=== PATIENT | female | born 1950 | race Caucasian/White ===

== ENCOUNTER 2018-01-30 13:42 | Emergency (ER) | payer OTHER, BC ==
[2018-01-30 14:37] VITALS: BP 181/151
--- NOTE | 2018-01-30 14:37 | EDPHY ---
H & P Stated Complaint: htn/dc [place]off hydrocodone for 10 days) Time Seen by Provider: 01/30/18 14:36 - Personal History Current Tetanus/Diphtheria Vaccine: Yes - Medical/Surgical History Hx Asthma: No Hx Chronic Respiratory Disease: No Hx Diabetes: No Hx Cardiac Disease: No Hx Renal Disease: No Hx Cirrhosis: No Hx Alcoholism: No Hx HIV/AIDS: No Hx Splenectomy or Spleen Trauma: No Other PMH: htn/chronic pain/fibromyalgia/back pain - Social History Smoking Status: Never smoked Constitutional: Initial Vital Signs Temperature (C) 36.8 C 01/30/18 13:54 Heart Rate 92 01/30/18 13:54 Respiratory Rate 18 01/30/18 13:54 Blood Pressure 171/114 H 01/30/18 13:54 O2 Sat (%) 96 01/30/18 13:54 O2 Delivery Mode Room Air Allergies/Adverse Reactions: No Known Allergies Allergy (Unverified 01/30/18 13:49) Home Medications: Medication Instructions Recorded RIANNA-D 12 HOUR TABLET 01/30/18 ARIPiprazole 01/30/18 Cyclobenzaprine 01/30/18 Diclofenac Potassium 01/30/18 Gabapentin 01/30/18 HYDROcodone/APAP 10/325 [S[place] 1 - 2 each PO Q4-6PRN PRN #30 tab 01/30/18 10/325] Omeprazole 01/30/18 VENLAFAXINE HCL 01/30/18 Valsartan 01/30/18 Vicodin 5-300 mg Tablet 01/30/18 Vitamin D3 01/30/18 buPROPion 01/30/18 Medical Decision Making ED Course/Re-evaluation: CHIEF COMPLAINT: Hypertension, headache HISTORY OF PRESENT ILLNESS: This patient is a pleasant 67 year old female complaining of headache and elevated blood pressure. She recently moved to [place] from [place] one month ago. She had an appointment with Dr. Sandra Kwok this morning and had elevated blood pressure and headache. The headache began this morning after waking. She was referred to emergency department for further evaluation. The patient's BP at triage 181/115. She generally takes Valsartan-HCTZ 320-12.5mg which has controlled her hypertension well. She has been taking all her medications as directed except for her pain medication, which she ran out of 10 days ago due to her move. She generally takes gabapentin, hydrocodone, and cyclobenzaprine, but she has not yet filled her prescription for hydrocodone as she has not followed up with a pain clinic here in [place] to transfer her medications. She is working with her PCP to establish care with a local pain clinic. She denies chest pain, shortness of breath, weakness, numbness, paresthesias, vomiting, fever, or other associated symptoms. REVIEW OF SYSTEMS: A 10 point review of systems was performed and is negative with the exception of the elements mentioned in the history of present illness. PHYSICAL EXAM: HR, BP, O2 Sat, RR. Temp noted General Appearance: Alert, well hydrated, appropriate, and non-toxic appearing. Head: Atraumatic without scalp tenderness or obvious injury Eyes: Pupils equal, round, reactive to light and accommodation, EOMI, no trauma , no injection. Ears: Clear bilaterally, no perforation, normal landmarks Nose: Atraumatic, no rhinorrhea, clear. Throat: There is no erythema or exudates, no lesions, normal tonsils, mucus membranes moist. Neck: Supple, 2+ carotid upstroke, nontender, no lymphadenopathy. Respiratory: No retractions, no distress, no wheezes, and no accessory muscle use. Lungs are clear to auscultation bilaterally. Cardiovascular: Regular rate and rhythm, no murmurs, rubs, or gallops. Bilateral carotid, radial, dorsalis pedis, and posterior tibial pulses intact. Good capillary refill all extremities. Gastrointestinal: Abdomen is soft, nontender, non-distended, no masses, no rebound, no guarding, no peritoneal signs. Musculoskeletal: Normal active ROM of all extremities, atraumatic. Neurological: Alert, appropriate, and interactive. The patient has normal DTRs and non-focal cranial nerves, motor, sensory, and cerebellar exam. Skin: No rashes, good turgor, no nodules on palpation. Past medical history: Hypertension (valsartan). Chronic pain. Fibromyalgia. Past surgical history: Noncontributory Family history: Noncontributory Social history: Recently moved from [place]. Lives in [place]. Employed. DIFFERENTIAL DIAGNOSIS: The differential diagnosis for the patient's headache included but was not limited to hypertension, medication withdrawal, subarachnoid hemorrhage, migraine headache, tension headache and infectious causes such as meningitis, pharyngitis and sinusitis. MEDICAL DECISION [id number] y/o female presents with hypertension and headache. Patient's hypertension may be secondary to her increased pain as she has run out of her prescription for hydrocodone. Plan to administer 20/12.5mg PO lisinopril-HCTZ for antihypertensive effects. Plan to discharge the patient home in good condition with prescription for Somerset 10/325. She will continue to follow up with her PCP to establish care with a local pain clinic. Departure - Departure Disposition: Home, Routine, Self-Care Clinical Impression: Hypertension Qualifiers: Hypertension type: essential hypertension Qualified Code(s): I10 - Essential ( primary) hypertension Headache Qualifiers: Headache type: unspecified Headache chronicity pattern: acute headache Intractability: not intractable Qualified Code(s): R51 - Headache Condition: Good Instructions: Acute Headache (ED), Hypertension (ED) Additional Instructions: 1. Continue taking your medications as prescribed. 2. Continue to follow up with your primary care provider to establish care with a local pain clinic. 3. Return to the emergency department for severe headache, fever, chest pain, shortness of breath, or other worsening of condition or further concerns. Referrals: Sandra Kwok MD [Medical Doctor] - As per Instructions Prescriptions: HYDROcodone/APAP 10/325 [S[place] 10/325] 1 - 2 each PO Q4-6PRN PRN #30 tab PRN Reason: Pain, Moderate Report Scribed for: Joao Roman Report Scribed by: Shelly Yuen Date of Report: 01/30/18 Time of Report: 14:39
[2018-01-31] MEDS ORDERED: LISINOPRIL/HCTZ 20/12.5MG 1 EA TAB PO ONE (14:44)
== END 2018-01-30 15:08 | disposition home or self-care (01) ==
DX: R51 Headache (principal); I10 Essential (primary) hypertension

== ENCOUNTER → 2018-05-04 | Outpatient (CLI) | payer OTHER, BC | LOC: FIMAGING 08:25 | PROVIDERS: ATTEND Physician Assistant | DX: M43.16 Spondylolisthesis, lumbar region (principal); M51.36 Other intervertebral disc degeneration, lumbar region; M48.061 Spinal stenosis, lumbar region without neurogenic claudication ==